=== PATIENT | female | born 1960 | race Caucasian/White ===

== ENCOUNTER 2024-01-16 07:21 | Day surgery (SDC) | payer MEDICAID ==
[2024-01-16] MEDS: Lactated Ringers 1,000 ML IV SCH (08:18)
[2024-01-16] MEDS: Albuterol 0.083% 2.5 MG/3 ML Neb Soln NEB ONE (08:33)
[2024-01-16] MEDS ORDERED: Propofol 200 MG/20 ML SDV ONE (09:35)
[2024-01-16] MEDS ORDERED: fentaNYL 50 MCG/ML SDV ONE (09:35)
[2024-01-16 11:40] VITALS: BP 154/84; PULSE 84
== END 2024-01-16 11:50 | disposition home or self-care (01) ==
LOC: JP.SDS 07:21
PROVIDERS: ATTEND Family Medicine
DX: Z12.11 Encounter for screening for malignant neoplasm of colon (principal); J44.9 Chronic obstructive pulmonary disease, unspecified; E78.5 Hyperlipidemia, unspecified; E11.9 Type 2 diabetes mellitus without complications
CPT/HCPCS: 45378; 94640; J2704; J3010; J7120

== ENCOUNTER 2024-01-19 09:59 | Inpatient (IN) | payer MEDICAID ==
[2024-01-19 10:54] LABS: BASOPHILS ABSOLUTE AUTO 0.09 K/uL (0.00-0.10); BASOPHILS PERCENT AUTO 0.9 % (0.1-1.3); EOSINOPHILS ABSOLUTE AUTO 0.25 K/uL (0.00-0.40); EOSINOPHILS PERCENT AUTO 2.4 % (0.0-5.4); HEMATOCRIT 38.2 % (34.3-46.0); HEMOGLOBIN 13.4 g/dL (11.2-15.5); IMMATURE GRAN ABSOLUTE AUTO 0.03 K/uL (0.00-0.23); IMMATURE GRAN PERCENT AUTO 0.3 % (0.0-0.7); LYMPHOCYTES ABSOLUTE AUTO 2.97 K/uL (0.8-3.3); LYMPHOCYTES PERCENT AUTO 28.8 % (11.4-47.7); MEAN CORPUSCULAR HEMOGLOBIN 32.8 pg (31.6-35.5); MEAN CORPUSCULAR HGB CONC 35.1 g/dL (31.6-35.5); MEAN CORPUSCULAR VOLUME 93.6 fL (81.4-99.0); MONOCYTES ABSOLUTE AUTO 1.06 K/uL (0.20-0.90); MONOCYTES PERCENT AUTO 10.3 % (3.3-12.6); NEUTROPHILS ABSOLUTE AUTO 5.93 K/uL (1.0-7.6); NEUTROPHILS PERCENT AUTO 57.3 % (40.0-78.1); PLATELET COUNT,PLT 329 K/uL (130-375); RED BLOOD CELL COUNT 4.08 M/uL (3.77-5.24); WHITE BLOOD CELL COUNT,WBC 10.3 K/uL (3.2-11.0)
[2024-01-19] MEDS: Sodium Chloride 0.9% 1,000 ML IV SCH (11:01)
[2024-01-19 11:15] LABS: A/G RATIO 0.9 (1.2-2.2); ALANINE AMINOTRANSFERASE,ALT 39 U/L (12-78); ALBUMIN 3.6 g/dL (3.4-5.0); ALKALINE PHOSPHATASE 64 U/L (46-116); ANION GAP 12.9 mmol/L (5.0-14.0); ASPARTATE AMNIOTRANSFERASE,AST 30 U/L (15-37); BILIRUBIN TOTAL 0.4 mg/dL (0.2-1.0); BLOOD UREA NITROGEN,BUN 7 mg/dL (7-18); C-REACTIVE PROTEIN < 0.50 mg/dL (<0.50); CALCIUM 8.6 mg/dL (8.5-10.1); CARBON DIOXIDE,CO2 30 mmol/L (21-32); CHLORIDE,CL 98 mmol/L (100-108); CREATININE 0.7 mg/dL (0.6-1.0); EST CRCL DRUG DOSING (CG) 61.27 mL/min; ESTIMATED GFR 97 mL/min (>60); GLUCOSE RANDOM 93 mg/dL (74-106); POTASSIUM,K 3.9 mmol/L (3.6-5.2); PROTEIN TOTAL,TP 7.5 g/dL (6.4-8.2); SODIUM,NA 137 mmol/L (140-148)
[2024-01-19] MEDS: HYDROmorphone 1 MG/ML Syringe IVPUSH ONE (11:22)
[2024-01-19 11:51] LABS: APPEARANCE,URINE SLIGHTLY CLOUDY (CLEAR); BILIRUBIN,URINE NEGATIVE (NEGATIVE); COLOR,URINE YELLOW (YELLOW); GLUCOSE,URINE NEGATIVE (NEGATIVE); KETONES,URINE NEGATIVE (NEGATIVE); LEUKOCYTE ESTERASE,URINE NEGATIVE (NEGATIVE); NITRITE,URINE NEGATIVE (NEGATIVE); OCCULT BLOOD,URINE NEGATIVE (NEGATIVE); PROTEIN,URINE NEGATIVE (NEGATIVE); UROBILINOGEN,URINE 0.2 EU/dL (0.2-1.0)
[2024-01-19 11:56] LABS: AMORPHOUS SEDIMENT,URINE RARE; BACTERIA,URINE NOT SEEN; EPITHELIAL CELLS,URINE RARE; MUCUS,URINE NOT SEEN; RBC,URINE NOT SEEN (0-5); WBC,URINE NOT SEEN (0-5)
[2024-01-19] MEDS: Sodium Chloride 0.9% 100 ML IV SCH (11:57)
[2024-01-19] MEDS: Iopamidol 612 MG/ML 100 ML Bottle IV PRN (11:57)
[2024-01-19] MEDS: Sodium Chloride 0.9% 10 ML Syringe FLUSH ONE (11:58)
[2024-01-19] MEDS: Ketorolac 15 MG/ML SDV IVPUSH ONE (12:05)
[2024-01-19] MEDS ORDERED: Piperacillin/Tazobactam 4.5 GM in Sodium Chloride 0.9% 100 ML IV ONE (14:22)
[2024-01-19] MEDS: Piperacillin/Tazobactam/Dext 4.5 GM in Premix Bag 1 BAG IV ONE (15:23)
[2024-01-19] MEDS ORDERED: Sennosides/Docusate Sodium 50-8.6 MG Tab PO PRN (17:02)
[2024-01-19] MEDS ORDERED: Albuterol 0.083% 2.5 MG/3 ML Neb Soln NEB PRN (17:02)
[2024-01-19] MEDS ORDERED: Ondansetron 4 MG/2 ML SDV IV PRN (17:02)
[2024-01-19] MEDS ORDERED: Nicotine 14 MG/24 Hr Patch TRDERM PRN (17:02)
[2024-01-19] MEDS ORDERED: Ondansetron 4 MG Tab.DIS PO PRN (17:02)
[2024-01-19] MEDS ORDERED: Albuterol 6.7 GM Inhaler INH PRN (17:05)
[2024-01-19] MEDS ORDERED: Meclizine 25 MG Tab PO PRN (17:12)
[2024-01-19] MEDS: oxyCODONE 5 MG Tab PO PRN (17:31)
[2024-01-19] MEDS: Formoterol/Mometasone 200-5 MCG 8.8 GM Inhaler IH SCH (18:17)
[2024-01-19] MEDS: Lactobacillus Rhamnosus GG (Probiotic) Cap PO SCH (18:17)
[2024-01-19] MEDS: ATORVASTATIN 20 MG PO SCH (18:19)
[2024-01-19] MEDS: DULOXETINE 60 MG PO SCH (20:00)
[2024-01-19] MEDS: Pregabalin 50 MG Cap PO ONE (20:00)
[2024-01-19] MEDS: Piperacillin/Tazobactam/Dext 4.5 GM in Premix Bag 1 BAG IV SCH (20:00)
[2024-01-19] MEDS: Pregabalin 50 MG Cap PO SCH (20:11)
[2024-01-19] MEDS: Pregabalin 100 MG Cap PO SCH (20:11)
[2024-01-19] MEDS ORDERED: Pregabalin 50 MG Cap PO SCH (21:00)
[2024-01-19] MEDS ORDERED: Lactobacillus Rhamnosus GG (Probiotic) Cap PO SCH (21:00)
[2024-01-19] MEDS ORDERED: ATORVASTATIN 20 MG PO SCH (21:00)
[2024-01-19] MEDS ORDERED: ACETAMINOPHEN 500 MG PO SCH (21:00)
[2024-01-19] MEDS ORDERED: Formoterol/Mometasone 200-5 MCG 8.8 GM Inhaler IH SCH (21:00)
[2024-01-19] MEDS: HYDROmorphone 0.5 MG/0.5 ML Syringe IVPUSH PRN (23:48)
[2024-01-20] MEDS: Sodium Chloride 0.9% 1,000 ML IV SCH (01:52)
[2024-01-20] MEDS ORDERED: DULOXETINE 60 MG PO SCH ×2 (05:00→09:00)
[2024-01-20] MEDS: Pregabalin 50 MG Cap PO SCH ×2 (05:18→17:10)
[2024-01-20] MEDS: VITAMIN D3 PO SCH (05:22)
[2024-01-20] MEDS: CALCIUM PO SCH (05:22)
[2024-01-20 05:43] LABS: HEMATOCRIT 35.8 % (34.3-46.0); HEMOGLOBIN 12.3 g/dL (11.2-15.5); MEAN CORPUSCULAR HEMOGLOBIN 32.5 pg (31.6-35.5); MEAN CORPUSCULAR HGB CONC 34.4 g/dL (31.6-35.5); MEAN CORPUSCULAR VOLUME 94.5 fL (81.4-99.0); RED BLOOD CELL COUNT 3.79 M/uL (3.77-5.24); WHITE BLOOD CELL COUNT,WBC 8.7 K/uL (3.2-11.0)
[2024-01-20 06:22] LABS: BLOOD UREA NITROGEN,BUN 6 mg/dL (7-18); CALCIUM 7.8 mg/dL (8.5-10.1); CARBON DIOXIDE,CO2 29 mmol/L (21-32); CHLORIDE,CL 102 mmol/L (100-108); CREATININE 0.7 mg/dL (0.6-1.0); EST CRCL DRUG DOSING (CG) 61.27 mL/min; ESTIMATED GFR 97 mL/min (>60); GLUCOSE RANDOM 94 mg/dL (74-106); POTASSIUM,K 3.9 mmol/L (3.6-5.2); SODIUM,NA 139 mmol/L (140-148)
[2024-01-20 06:24] LABS: ANION GAP 11.9 mmol/L (5.0-14.0); C-REACTIVE PROTEIN < 0.50 mg/dL (<0.50)
[2024-01-20] MEDS: PYRIDOXINE 100 MG PO SCH (08:15)
[2024-01-20] MEDS: D5 1/2 NS w/ 20 mEq/L KCl 1,000 ML IV SCH (14:38)
[2024-01-20] MEDS: ACETAMINOPHEN 500 MG PO SCH (15:55)
[2024-01-20] MEDS: CYCLOBENZAPRINE 10 MG PO PRN (20:02)
[2024-01-20] MEDS: diphenhydrAMINE 25 MG Cap PO PRN (22:18)
[2024-01-21 04:50] LABS: HEMATOCRIT 35.9 % (34.3-46.0); HEMOGLOBIN 12.5 g/dL (11.2-15.5); MEAN CORPUSCULAR HEMOGLOBIN 32.5 pg (31.6-35.5); MEAN CORPUSCULAR HGB CONC 34.8 g/dL (31.6-35.5); MEAN CORPUSCULAR VOLUME 93.2 fL (81.4-99.0); RED BLOOD CELL COUNT 3.85 M/uL (3.77-5.24); WHITE BLOOD CELL COUNT,WBC 7.3 K/uL (3.2-11.0)
[2024-01-21 05:06] LABS: BLOOD UREA NITROGEN,BUN 1 mg/dL (7-18); CALCIUM 8.1 mg/dL (8.5-10.1); CARBON DIOXIDE,CO2 29 mmol/L (21-32); CHLORIDE,CL 100 mmol/L (100-108); CREATININE 0.6 mg/dL (0.6-1.0); EST CRCL DRUG DOSING (CG) 71.48 mL/min; ESTIMATED GFR 100 mL/min (>60); GLUCOSE RANDOM 107 mg/dL (74-106); SODIUM,NA 137 mmol/L (140-148)
[2024-01-21 05:15] LABS: C-REACTIVE PROTEIN < 0.50 mg/dL (<0.50)
[2024-01-23 05:17] VITALS: PULSE 74
[2024-01-23] MEDS: Amoxicillin/Clavulanate K 875-125 MG Tab PO SCH (08:02)
[2024-01-23] MEDS: Magnesium Hydroxide 400 MG/5 ML Susp 30 ML Cup PO PRN (09:31)
[2024-01-23 11:30] VITALS: BP 126/71
== END 2024-01-23 12:48 | disposition home or self-care (01) | DRG 394 ==
LOC: JP.ED 09:59 → JP.MS 16:43
PROVIDERS: ADMIT Internal Medicine; ATTEND Internal Medicine
DX: K63.1 Perforation of intestine (nontraumatic) (principal); R18.8 Other ascites; E78.00 Pure hypercholesterolemia, unspecified; J44.9 Chronic obstructive pulmonary disease, unspecified; J43.9 Emphysema, unspecified; K21.9 Gastro-esophageal reflux disease without esophagitis; H54.7 Unspecified visual loss; G62.9 Polyneuropathy, unspecified; M19.90 Unspecified osteoarthritis, unspecified site; G89.29 Other chronic pain; M81.0 Age-related osteoporosis without current pathological fracture; M54.9 Dorsalgia, unspecified; F98.8 Other specified behavioral and emotional disorders with onset usually occurring in childhood and adolescence; F17.200 Nicotine dependence, unspecified, uncomplicated; Z88.6 Allergy status to analgesic agent; Z88.5 Allergy status to narcotic agent; Z88.8 Allergy status to other drugs, medicaments and biological substances; Z98.49 Cataract extraction status, unspecified eye; Z86.16 Personal history of COVID-19; Z90.89 Acquired absence of other organs; Z79.899 Other long term (current) drug therapy; Z90.710 Acquired absence of both cervix and uterus; Z98.890 Other specified postprocedural states
CPT/HCPCS: 36415; 74177; 74177-26; 80048; 80053; 81001; 83605; 85025; 85027; 86140; 87040; 94640; 96361; 96365; 96375; 99223; 99232; 99238; 99284; 99285-25; A9270-GY; J1170; J2543; J3480; J3490; J7030; Q9967

== ENCOUNTER 2024-04-02 01:25 | Inpatient (IN) | payer MEDICAID ==
[2024-04-02 02:06] LABS: BASOPHILS ABSOLUTE AUTO 0.05 K/uL (0.00-0.10); BASOPHILS PERCENT AUTO 0.3 % (0.1-1.3); EOSINOPHILS ABSOLUTE AUTO 0.01 K/uL (0.00-0.40); EOSINOPHILS PERCENT AUTO 0.1 % (0.0-5.4); HEMATOCRIT 40.9 % (34.3-46.0); HEMOGLOBIN 14.4 g/dL (11.2-15.5); IMMATURE GRAN ABSOLUTE AUTO 0.08 K/uL (0.00-0.23); IMMATURE GRAN PERCENT AUTO 0.5 % (0.0-0.7); LYMPHOCYTES ABSOLUTE AUTO 2.22 K/uL (0.8-3.3); LYMPHOCYTES PERCENT AUTO 13.5 % (11.4-47.7); MEAN CORPUSCULAR HEMOGLOBIN 32.7 pg (31.6-35.5); MEAN CORPUSCULAR HGB CONC 35.2 g/dL (31.6-35.5); MONOCYTES ABSOLUTE AUTO 1.36 K/uL (0.20-0.90); MONOCYTES PERCENT AUTO 8.3 % (3.3-12.6); NEUTROPHILS ABSOLUTE AUTO 12.74 K/uL (1.0-7.6); NEUTROPHILS PERCENT AUTO 77.3 % (40.0-78.1); PLATELET COUNT,PLT 314 K/uL (130-375); WHITE BLOOD CELL COUNT,WBC 16.5 K/uL (3.2-11.0)
[2024-04-02] MEDS: Albuterol/Ipratropium 3.0-0.5 MG/3 ML Neb Soln NEB ONE (02:07)
[2024-04-02 02:16] LABS: A/G RATIO 0.8 (1.2-2.2); ALANINE AMINOTRANSFERASE,ALT 37 U/L (12-78); ALBUMIN 3.8 g/dL (3.4-5.0); ALKALINE PHOSPHATASE 85 U/L (46-116); ASPARTATE AMNIOTRANSFERASE,AST 25 U/L (15-37); BILIRUBIN TOTAL 0.5 mg/dL (0.2-1.0); BLOOD UREA NITROGEN,BUN 5 mg/dL (7-18); CALCIUM 9.3 mg/dL (8.5-10.1); CARBON DIOXIDE,CO2 29 mmol/L (21-32); CHLORIDE,CL 88 mmol/L (100-108); CREATININE 0.7 mg/dL (0.6-1.0); EST CRCL DRUG DOSING (CG) 64.21 mL/min; ESTIMATED GFR 97 mL/min (>60); GLUCOSE RANDOM 117 mg/dL (74-106); POTASSIUM,K 4.1 mmol/L (3.6-5.2); PROTEIN TOTAL,TP 8.7 g/dL (6.4-8.2); SODIUM,NA 126 mmol/L (140-148)
[2024-04-02 02:17] LABS: ANION GAP 13.1 mmol/L (5.0-14.0)
[2024-04-02] MEDS: Albuterol 0.083% 2.5 MG/3 ML Neb Soln NEB ONE (03:12)
[2024-04-02] MEDS: cefTRIAXone 1 GM in Sodium Chloride 0.9% 50 ML IV ONE (03:12)
[2024-04-02 03:29] LABS: CORONAVIRUS COVID-19 NAA NEGATIVE (NEGATIVE); INFLUENZA A NAA NEGATIVE (NEGATIVE); INFLUENZA B NAA NEGATIVE (NEGATIVE); RESPIRATORY SYNCYTIAL VIR NAA NEGATIVE (NEGATIVE)
[2024-04-02] MEDS: methylPREDNISolone Sodium Succinate 125 MG/2 ML SDV IVPUSH ONE (03:38)
[2024-04-02 03:44] LABS: TSH ULTRASENSITIVE 0.845 uIU/mL (0.358-3.740)
[2024-04-02] MEDS: Azithromycin 500 MG in Sodium Chloride 0.9% 250 ML IV ONE (03:53)
[2024-04-02] MEDS ORDERED: Albuterol 0.083% 2.5 MG/3 ML Neb Soln NEB PRN (04:36)
[2024-04-02] MEDS ORDERED: Docusate Sodium 100 MG Cap PO PRN (04:36)
[2024-04-02] MEDS ORDERED: Bisacodyl 5 MG Tab PO PRN (04:36)
[2024-04-02] MEDS ORDERED: Cyclobenzaprine 10 MG Tab PO PRN (04:47)
[2024-04-02] MEDS: Acetaminophen 325 MG Tab PO PRN (05:40)
[2024-04-02] MEDS: Pregabalin 50 MG Cap PO ONE (06:04)
[2024-04-02 06:05] LABS: APPEARANCE,URINE CLEAR (CLEAR); BILIRUBIN,URINE NEGATIVE (NEGATIVE); COLOR,URINE YELLOW (YELLOW); GLUCOSE,URINE NEGATIVE (NEGATIVE); KETONES,URINE 15 mg/dL (NEGATIVE); LEUKOCYTE ESTERASE,URINE NEGATIVE (NEGATIVE); NITRITE,URINE NEGATIVE (NEGATIVE); OCCULT BLOOD,URINE NEGATIVE (NEGATIVE); PROTEIN,URINE NEGATIVE (NEGATIVE); UROBILINOGEN,URINE 0.2 EU/dL (0.2-1.0)
[2024-04-02] MEDS: Sodium Chloride 0.9% 1,000 ML IV SCH (06:06)
[2024-04-02 06:12] LABS: AMORPHOUS SEDIMENT,URINE NOT SEEN; BACTERIA,URINE RARE; EPITHELIAL CELLS,URINE RARE; MUCUS,URINE RARE; RBC,URINE 0-5 (0-5); WBC,URINE 0-5 (0-5)
[2024-04-02] MEDS: Albuterol/Ipratropium 3.0-0.5 MG/3 ML Neb Soln NEB SCH (07:05)
[2024-04-02] MEDS: Pantoprazole 40 MG Vial IVPUSH SCH (08:57)
[2024-04-02] MEDS: [UNRECOGNIZED DRUG - OTHER] PO SCH (08:57)
[2024-04-02] MEDS: Enoxaparin 40 MG/0.4 ML Syringe SUBCUT SCH (08:57)
[2024-04-02] MEDS: VITAMIN B6 PYRIDOXINE 100 MG PO SCH (08:58)
[2024-04-02] MEDS: Nicotine 21 MG/24 Hr Patch TRDERM SCH (08:58)
[2024-04-02] MEDS ORDERED: Pregabalin 50 MG Cap PO SCH (09:00)
[2024-04-02] MEDS ORDERED: Calcium Carbonate/Vitamin D3 1500 MG-400 Units Tab PO SCH (09:00)
[2024-04-02] MEDS ORDERED: DULoxetine 30 MG Cap PO SCH (09:00)
[2024-04-02] MEDS ORDERED: Vitamin B6-pyridOXINE 50 MG Tab PO SCH (09:00)
[2024-04-02] MEDS ORDERED: Acetaminophen 500 MG Tab PO SCH (09:00)
[2024-04-02] MEDS: methylPREDNISolone Sodium Succinate 40 MG/1 ML SDV IVPUSH SCH (10:59)
[2024-04-02] MEDS: Pregabalin 100 MG Cap PO SCH (16:40)
[2024-04-02] MEDS: ATORVASTATIN 20 MG PO SCH (16:40)
[2024-04-02] MEDS: CYCLOBENZAPRINE 10 MG PO SCH (16:41)
[2024-04-02] MEDS: DULOXETINE 60 MG PO SCH (16:41)
[2024-04-03] MEDS: cefTRIAXone 1 GM in Sodium Chloride 0.9% 50 ML IV SCH (03:12)
[2024-04-03] MEDS: ACETAMINOPHEN 500 MG PO SCH (03:30)
[2024-04-03] MEDS: Azithromycin 500 MG in Sodium Chloride 0.9% 250 ML IV SCH (04:03)
[2024-04-03] MEDS: Pregabalin 50 MG Cap PO SCH (04:04)
[2024-04-03 05:54] LABS: BASOPHILS ABSOLUTE AUTO 0.03 K/uL (0.00-0.10); BASOPHILS PERCENT AUTO 0.2 % (0.1-1.3); EOSINOPHILS PERCENT AUTO 0.1 % (0.0-5.4); HEMATOCRIT 34.7 % (34.3-46.0); HEMOGLOBIN 12.1 g/dL (11.2-15.5); IMMATURE GRAN ABSOLUTE AUTO 0.25 K/uL (0.00-0.23); IMMATURE GRAN PERCENT AUTO 1.3 % (0.0-0.7); LYMPHOCYTES ABSOLUTE AUTO 1.78 K/uL (0.8-3.3); LYMPHOCYTES PERCENT AUTO 9.6 % (11.4-47.7); MEAN CORPUSCULAR HEMOGLOBIN 32.7 pg (31.6-35.5); MEAN CORPUSCULAR HGB CONC 34.9 g/dL (31.6-35.5); MEAN CORPUSCULAR VOLUME 93.8 fL (81.4-99.0); MONOCYTES ABSOLUTE AUTO 1.69 K/uL (0.20-0.90); MONOCYTES PERCENT AUTO 9.1 % (3.3-12.6); NEUTROPHILS ABSOLUTE AUTO 14.83 K/uL (1.0-7.6); NEUTROPHILS PERCENT AUTO 79.7 % (40.0-78.1); PLATELET COUNT,PLT 271 K/uL (130-375); WHITE BLOOD CELL COUNT,WBC 18.6 K/uL (3.2-11.0)
[2024-04-03 05:58] LABS: EOSINOPHILS ABSOLUTE AUTO 0.01 K/uL (0.00-0.40)
[2024-04-03 06:04] LABS: CALCIUM 8.6 mg/dL (8.5-10.1); CREATININE 0.6 mg/dL (0.6-1.0); EST CRCL DRUG DOSING (CG) 74.92 mL/min; POTASSIUM,K 4.1 mmol/L (3.6-5.2)
[2024-04-03 06:11] LABS: ANION GAP 11.1 mmol/L (5.0-14.0)
[2024-04-03] MEDS: Pantoprazole 40 MG Tab.CR PO SCH (07:55)
[2024-04-03] MEDS: predniSONE 20 MG Tab PO SCH (08:16)
[2024-04-03] MEDS: [UNRECOGNIZED DRUG - OTHER] PO SCH (08:16)
[2024-04-04 05:55] LABS: HEMATOCRIT 35.8 % (34.3-46.0); HEMOGLOBIN 12.5 g/dL (11.2-15.5); MEAN CORPUSCULAR HEMOGLOBIN 32.7 pg (31.6-35.5); MEAN CORPUSCULAR HGB CONC 34.9 g/dL (31.6-35.5); MEAN CORPUSCULAR VOLUME 93.7 fL (81.4-99.0); RED BLOOD CELL COUNT 3.82 M/uL (3.77-5.24); WHITE BLOOD CELL COUNT,WBC 16.9 K/uL (3.2-11.0)
[2024-04-04] MEDS ORDERED: Sodium Chloride 0.9% 10 ML Syringe IV PRN (14:42)
[2024-04-05] MEDS: guaiFENesin 100 MG/5 ML Soln 10 ML UD Cup PO PRN (12:01)
[2024-04-05] MEDS: Acetylcysteine 20% 200 MG/ML 4 ML Nebulizer Soln SDV NEB SCH (14:32)
[2024-04-05] MEDS ORDERED: Non-Formulary Medication 1 Each (Fluticasone Propion/Salmeterol [Advair Hfa 230-21 Mcg Inh IH SCH (21:00)
[2024-04-05] MEDS: ADVIAR INH SCH (21:03)
[2024-04-06] MEDS: cefTRIAXone 1 GM in Water For Injection, Sterile 10 ML IV SCH (03:04)
[2024-04-06 10:32] VITALS: BP 171/84; PULSE 86
== END 2024-04-06 11:15 | disposition home or self-care (01) | DRG 193 ==
LOC: JP.ED 01:25 → JP.MS 04:11
PROVIDERS: ADMIT Internal Medicine; ATTEND Hospitalist
DX: J18.9 Pneumonia, unspecified organism (principal); J96.01 Acute respiratory failure with hypoxia; E87.1 Hypo-osmolality and hyponatremia; J44.1 Chronic obstructive pulmonary disease with (acute) exacerbation; J44.0 Chronic obstructive pulmonary disease with (acute) lower respiratory infection; H54.7 Unspecified visual loss; M81.0 Age-related osteoporosis without current pathological fracture; M19.90 Unspecified osteoarthritis, unspecified site; G89.29 Other chronic pain; M54.9 Dorsalgia, unspecified; K21.9 Gastro-esophageal reflux disease without esophagitis; G62.9 Polyneuropathy, unspecified; G43.909 Migraine, unspecified, not intractable, without status migrainosus; H91.90 Unspecified hearing loss, unspecified ear; E78.00 Pure hypercholesterolemia, unspecified; F17.210 Nicotine dependence, cigarettes, uncomplicated; Z88.6 Allergy status to analgesic agent; Z88.5 Allergy status to narcotic agent; Z88.8 Allergy status to other drugs, medicaments and biological substances; Z90.89 Acquired absence of other organs; Z79.899 Other long term (current) drug therapy; Z90.710 Acquired absence of both cervix and uterus; Z98.890 Other specified postprocedural states; Z99.81 Dependence on supplemental oxygen
CPT/HCPCS: 0241U; 36415; 71045; 80048; 80053; 81001; 83605; 83690; 84295; 84443; 85025; 85027; 87040; 94640; 96365; 96367; 96375; 99222; 99232; 99238; 99285; 99285-25; A9270-GY; J0456; J0696; J1650; J2470; J2919; J3490; J7030; J7050; J7512; J7620

== ENCOUNTER 2025-03-07 09:57 | Emergency (ER) | payer MEDICARE, OTHER ==
[2025-03-07 12:35] LABS: BASOPHILS ABSOLUTE AUTO 0.06 K/uL (0.00-0.10); BASOPHILS PERCENT AUTO 0.8 % (0.1-1.3); EOSINOPHILS ABSOLUTE AUTO 0.19 K/uL (0.00-0.40); EOSINOPHILS PERCENT AUTO 2.7 % (0.0-5.4); IMMATURE GRAN ABSOLUTE AUTO 0.03 K/uL (0.00-0.23); IMMATURE GRAN PERCENT AUTO 0.4 % (0.0-0.7); LYMPHOCYTES ABSOLUTE AUTO 2.13 K/uL (0.8-3.3); LYMPHOCYTES PERCENT AUTO 29.9 % (11.4-47.7); MONOCYTES ABSOLUTE AUTO 0.76 K/uL (0.20-0.90); MONOCYTES PERCENT AUTO 10.7 % (3.3-12.6); NEUTROPHILS ABSOLUTE AUTO 3.95 K/uL (1.0-7.6); NEUTROPHILS PERCENT AUTO 55.5 % (40.0-78.1); PLATELET COUNT,PLT 313 K/uL (130-375); RED BLOOD CELL COUNT 4.76 M/uL (3.77-5.24); WHITE BLOOD CELL COUNT,WBC 7.1 K/uL (3.2-11.0)
[2025-03-07] MEDS: Sodium Chloride 0.9% 10 ML Syringe FLUSH PRN (12:38)
[2025-03-07 12:56] LABS: A/G RATIO 1.1 (1.2-2.2); ALANINE AMINOTRANSFERASE,ALT 48 U/L (12-78); ASPARTATE AMNIOTRANSFERASE,AST 40 U/L (15-37); BILIRUBIN TOTAL 0.8 mg/dL (0.2-1.0); BLOOD UREA NITROGEN,BUN 5 mg/dL (7-18); CARBON DIOXIDE,CO2 29 mmol/L (21-32); CHLORIDE,CL 94 mmol/L (100-108); CREATININE 0.4 mg/dL (0.6-1.0); EST CRCL DRUG DOSING (CG) 100.72 mL/min; ESTIMATED GFR 110 mL/min (>60); GLUCOSE RANDOM 102 mg/dL (74-106); POTASSIUM,K 3.5 mmol/L (3.6-5.2); PROTEIN TOTAL,TP 7.7 g/dL (6.4-8.2); SODIUM,NA 133 mmol/L (140-148)
[2025-03-07 13:38] LABS: CORONAVIRUS COVID-19 NAA NEGATIVE (NEGATIVE); INFLUENZA A NAA NEGATIVE (NEGATIVE); INFLUENZA B NAA NEGATIVE (NEGATIVE); RESPIRATORY SYNCYTIAL VIR NAA NEGATIVE (NEGATIVE)
[2025-03-07 13:58] LABS: APPEARANCE,URINE CLEAR (CLEAR); GLUCOSE,URINE NEGATIVE (NEGATIVE); OCCULT BLOOD,URINE NEGATIVE (NEGATIVE)
[2025-03-07 14:16] LABS: SQUAMOUS EPITHELIAL CELLS,UR FEW /HPF; UROTHELIAL CELLS,URINE RARE /HPF
[2025-03-07] MEDS: Ondansetron 4 MG/2 ML SDV IVPUSH ONE (17:08)
[2025-03-07 19:52] VITALS: BP 186/94; PULSE 73
== END 2025-03-07 19:50 | disposition home or self-care (01) ==
LOC: JP.ED 09:57
DX: J44.0 Chronic obstructive pulmonary disease with (acute) lower respiratory infection (principal); J18.9 Pneumonia, unspecified organism; B34.9 Viral infection, unspecified; K21.9 Gastro-esophageal reflux disease without esophagitis; Z86.16 Personal history of COVID-19; E78.00 Pure hypercholesterolemia, unspecified; Z88.8 Allergy status to other drugs, medicaments and biological substances; Z88.5 Allergy status to narcotic agent; Z88.6 Allergy status to analgesic agent; Z79.899 Other long term (current) drug therapy
CPT/HCPCS: 36415; 70450; 71045; 80053; 81001; 83690; 85025; 86140; 87637; 96361; 96365; 96374; 99283; 99285; J0696; J2405; J7030

== ENCOUNTER 2025-03-08 18:40 | Inpatient (IN) | payer MEDICARE, OTHER ==
[2025-03-08] MEDS ORDERED: Sodium Chloride 0.9% 10 ML Syringe FLUSH PRN ×2 (20:05→22:54)
[2025-03-08] MEDS ORDERED: Ondansetron 4 MG/2 ML SDV IVPUSH PRN (20:05)
[2025-03-08 20:21] LABS: BASOPHILS ABSOLUTE AUTO 0.05 K/uL (0.00-0.10); BASOPHILS PERCENT AUTO 0.6 % (0.1-1.3); EOSINOPHILS ABSOLUTE AUTO 0.22 K/uL (0.00-0.40); EOSINOPHILS PERCENT AUTO 2.5 % (0.0-5.4); IMMATURE GRAN ABSOLUTE AUTO 0.03 K/uL (0.00-0.23); IMMATURE GRAN PERCENT AUTO 0.3 % (0.0-0.7); LYMPHOCYTES ABSOLUTE AUTO 2.78 K/uL (0.8-3.3); LYMPHOCYTES PERCENT AUTO 31.5 % (11.4-47.7); MONOCYTES ABSOLUTE AUTO 0.95 K/uL (0.20-0.90); MONOCYTES PERCENT AUTO 10.8 % (3.3-12.6); NEUTROPHILS ABSOLUTE AUTO 4.80 K/uL (1.0-7.6); NEUTROPHILS PERCENT AUTO 54.3 % (40.0-78.1); PLATELET COUNT,PLT 322 K/uL (130-375); RED BLOOD CELL COUNT 4.37 M/uL (3.77-5.24); WHITE BLOOD CELL COUNT,WBC 8.8 K/uL (3.2-11.0)
[2025-03-08 20:39] LABS: BLOOD UREA NITROGEN,BUN 3.0 mg/dL (7-18); CARBON DIOXIDE,CO2 30.0 mmol/L (21-32); CHLORIDE,CL 93.0 mmol/L (100-108); CREATININE 0.4 mg/dL (0.6-1.0); EST CRCL DRUG DOSING (CG) 110.9 mL/min; ESTIMATED GFR 110.0 mL/min (>60); GLUCOSE RANDOM 106.0 mg/dL (74-106); POTASSIUM,K 3.3 mmol/L (3.6-5.2); SODIUM,NA 131.0 mmol/L (140-148)
[2025-03-08] MEDS: Potassium Chloride 20 MEQ Tab.ER PO ONE (21:04)
[2025-03-08] MEDS ORDERED: hydrALAZINE 20 MG/ML SDV IVPUSH PRN (21:47)
[2025-03-08] MEDS: Iopamidol 612 MG/ML 100 ML Bottle IV ONE (22:47)
[2025-03-08] MEDS: Sodium Chloride 0.9% 10 ML Syringe FLUSH ONE (22:47)
[2025-03-08] MEDS ORDERED: Albuterol 0.083% 2.5 MG/3 ML Neb Soln NEB PRN (22:54)
[2025-03-08] MEDS ORDERED: Magnesium Hydroxide 400 MG/5 ML Susp 30 ML Cup PO PRN (22:54)
[2025-03-08] MEDS ORDERED: Ondansetron 4 MG Tab.DIS PO PRN (22:54)
[2025-03-08] MEDS ORDERED: Sennosides/Docusate Sodium 50-8.6 MG Tab PO PRN (22:54)
[2025-03-08] MEDS: Potassium Chloride 20 MEQ in Premix Bag 1 BAG IV ONE (23:19)
[2025-03-08] MEDS: Propranolol 80 MG Cap.ER PO ONE (23:20)
[2025-03-08] MEDS: Magnesium Sulfate 2 GM/50 mL 2 GM in Premix Bag 1 BAG IV ONE (23:45)
[2025-03-09 05:53] LABS: PLATELET COUNT,PLT 308.0 K/uL (130-375); RED BLOOD CELL COUNT 4.22 M/uL (3.77-5.24); WHITE BLOOD CELL COUNT,WBC 8.2 K/uL (3.2-11.0)
[2025-03-09 06:14] LABS: BLOOD UREA NITROGEN,BUN 3.0 mg/dL (7-18); CARBON DIOXIDE,CO2 30.0 mmol/L (21-32); CHLORIDE,CL 102.0 mmol/L (100-108); CREATININE 0.5 mg/dL (0.6-1.0); EST CRCL DRUG DOSING (CG) 88.72 mL/min; ESTIMATED GFR 104.0 mL/min (>60); GLUCOSE RANDOM 98.0 mg/dL (74-106); POTASSIUM,K 4.0 mmol/L (3.6-5.2); SODIUM,NA 137.0 mmol/L (140-148)
[2025-03-09] MEDS ORDERED: Formoterol/Mometasone 200-5 MCG 8.8 GM Inhaler IH SCH (07:00)
[2025-03-09] MEDS: DULOXETINE 60 MG PO SCH (08:15)
[2025-03-09] MEDS: PYRIDOXINE 100 MG PO SCH (08:16)
[2025-03-09] MEDS: [UNRECOGNIZED DRUG - OTHER] PO SCH (08:17)
[2025-03-09] MEDS: ADVIAR INH SCH (08:19)
[2025-03-09] MEDS ORDERED: Vitamin B6-pyridOXINE 50 MG Tab PO SCH (09:00)
[2025-03-09] MEDS ORDERED: Calcium Carbonate/Vitamin D3 1500 MG-400 Units Tab PO SCH (09:00)
[2025-03-09] MEDS ORDERED: Non-Formulary Medication 1 Each (Duloxetine [Cymbalta] 60 MG Cap) PO SCH (09:00)
[2025-03-09] MEDS: PROPRANOLOL 80 MG PO SCH (17:01)
[2025-03-09] MEDS: ATORVASTATIN 20 MG PO SCH (20:45)
[2025-03-11] MEDS: Ondansetron 4 MG/2 ML SDV IV PRN (10:30)
[2025-03-13 11:54] VITALS: BP 149/76; PULSE 62
== END 2025-03-13 13:00 | disposition home or self-care (01) | DRG 189 ==
LOC: JP.ED 18:40 → JP.MS 22:05
PROVIDERS: ADMIT Nurse Practitioner; ATTEND Internal Medicine
DX: J96.01 Acute respiratory failure with hypoxia (principal); J44.1 Chronic obstructive pulmonary disease with (acute) exacerbation; J44.0 Chronic obstructive pulmonary disease with (acute) lower respiratory infection; J20.9 Acute bronchitis, unspecified; E87.6 Hypokalemia; E83.42 Hypomagnesemia; I10 Essential (primary) hypertension; H26.9 Unspecified cataract; H54.7 Unspecified visual loss; E78.00 Pure hypercholesterolemia, unspecified; K21.9 Gastro-esophageal reflux disease without esophagitis; M19.90 Unspecified osteoarthritis, unspecified site; M54.9 Dorsalgia, unspecified; G89.29 Other chronic pain; M81.0 Age-related osteoporosis without current pathological fracture; G43.909 Migraine, unspecified, not intractable, without status migrainosus; G62.9 Polyneuropathy, unspecified; R56.9 Unspecified convulsions; F17.200 Nicotine dependence, unspecified, uncomplicated; F98.8 Other specified behavioral and emotional disorders with onset usually occurring in childhood and adolescence; Z86.16 Personal history of COVID-19; Z90.49 Acquired absence of other specified parts of digestive tract; Z88.8 Allergy status to other drugs, medicaments and biological substances; Z88.5 Allergy status to narcotic agent; Z88.1 Allergy status to other antibiotic agents; Z79.899 Other long term (current) drug therapy; Z98.890 Other specified postprocedural states; Z98.891 History of uterine scar from previous surgery; Z90.710 Acquired absence of both cervix and uterus
CPT/HCPCS: 36415; 71260; 80048; 83735; 85025; 85027; 94640; 96360; 99223; 99232; 99238; 99285; 99285-25; A9270-GY; J0456; J0696; J1171; J1650; J2405; J3475; J7030; J7050; J7512; Q9967